=== PATIENT | male | born 1945 | race Caucasian/White ===

== ENCOUNTER 2021-03-25 09:54 | Inpatient (IN) | payer MEDICARE ==
[2021-03-24 12:57] LABS: BASOPHILS % (AUTO) 1 % (0-1); EOSINOPHILS % (AUTO) 2 % (1-7); LYMPHOCYTES % (AUTO) 19 % (22-44); MEAN CORPUSCULAR HEMOGLOBIN 32.7 pg (27.5-34.5); MEAN CORPUSCULAR HGB CONC 33.5 g/dL (33.2-36.2); MEAN PLATELET VOLUME 7.9 fL (7.4-10.4); MONOCYTES % (AUTO) 10 % (2-9); NEUTROPHILS % (AUTO) 68 % (42-75); PLATELET COUNT 288 x10^3/uL (130-400); RED BLOOD COUNT 4.05 x10^6/uL (4.38-5.82); RED CELL DISTRIBUTION WIDTH 13.7 % (9.4-14.8)
[2021-03-24 13:00] LABS: MICROSCOPIC NOT IND
[2021-03-24 13:03] LABS: ALANINE AMINOTRANSFERASE 31 U/L (12-78); ALBUMIN 3.2 g/dL (3.4-5.0); CALCIUM 9.2 mg/dL (8.5-10.1); CREATININE 0.62 mg/dL (0.7-1.3)
[2021-03-24 13:06] LABS: INTERNATIONAL NORMALIZED RATIO 0.93 (0.93-1.1)
[2021-03-24 13:07] LABS: ALKALINE PHOSPHATASE 77 U/L (45-117); BILIRUBIN,TOTAL 0.7 mg/dL (0.2-1.0); TOTAL PROTEIN 6.6 g/dL (6.4-8.2)
[2021-03-24 13:41] LABS: CHLORIDE 108 mmol/L (98-107)
[2021-03-24 13:53] LABS: ANION GAP 5 mmol/L (5-15)
[~2021-03-25] VITALS: Ht 185.4 cm; Wt 96.0 kg
[~2021-03-25 09:54] MED LIST: ACETAMINOPHEN 325 MG TABLET PO PRN; BUPIVACAINE/PF 0.5% ONE; CEFAZOLIN 1,000 MG ONE; DEXT10TA7 PO; EPHEDRINE 50 MG/ML, 1ML IVPush PRN; EPINEPHRINE 1 MG/ML, 1ML ONE; GENTAMICIN 80 MG/2 ML ONE; HYDROmorphone 1 MG/ML, 1ML INJ IVPush PRN; LABETALOL 5MG/ML, 20ML IV PRN; LOSA100T14 PO; MELO10CA3 PO; METHOCARBAMOL 1,000 MG in DEXTROSE 5% 100 ML IV PRN; ONDANSETRON 2MG/ML, 2ML IVPush PRN; OXYcodone 5 MG/5 ML ORAL.SOL UDC PO PRN; PROMETHAZINE 25 MG/ML, 1ML IVPush PRN; ROSU10TA26 PO; hydrALAzine 20 MG/ML, 1ML IV PRN
[2021-03-25] MEDS ORDERED: CHLORHEXIDINE 15 ML UDC ONE (10:11)
[2021-03-25] MEDS ORDERED: FOLI0.8T5 PO (10:20)
[2021-03-25] MEDS ORDERED: GINK60CA2 PO (10:20)
[2021-03-25] MEDS ORDERED: CHOL10003 PO (10:20)
[2021-03-25] MEDS ORDERED: DOCU100T3 PO (10:20)
[2021-03-25] MEDS ORDERED: VALE500C PO (10:20)
[2021-03-25] MEDS ORDERED: CITA20TA6 PO (10:20)
[2021-03-25] MEDS ORDERED: ASPI81TA45 PO (10:20)
[2021-03-25] MEDS ORDERED: LACTATED RINGERS 1,000 ML IV SCH (11:00)
[2021-03-25] MEDS ORDERED: CHLORHEXIDINE 15 ML UDC PO ONE (11:00)
[2021-03-25] MEDS ORDERED: BUPIVACAINE LIPOSOME/PF 10ML INFIL ONE (11:04)
[2021-03-25] MEDS ORDERED: FENTANYL PF 250 MCG/5ML ONE (11:14)
[2021-03-25] MEDS ORDERED: VANCOMYCIN 1,000 MG ONE (11:19)
[2021-03-25] MEDS ORDERED: BUPIVACAINE 0.25% ONE (11:19)
[2021-03-25] MEDS ORDERED: ONDANSETRON 2MG/ML, 2ML ONE (11:57)
[2021-03-25] MEDS ORDERED: EPHEDRINE 50 MG/ML, 1ML ONE (11:57)
[2021-03-25] MEDS ORDERED: CEFAZOLIN 1,000 MG ONE (11:57)
[2021-03-25] MEDS ORDERED: LIDOCAINE-MPF 2% ,5ML ONE (11:57)
[2021-03-25] MEDS ORDERED: SUCCINYLCHOLINE 20 MG/ML, 10ML ONE (11:57)
[2021-03-25] MEDS ORDERED: PROPOFOL 10 MG/ML, 20ML ONE ×2 (11:57→13:44)
[2021-03-25] MEDS ORDERED: DEXAMETHASONE 4 MG/ML, 1ML ONE (11:57)
[2021-03-25] MEDS ORDERED: FENTANYL PF 100 MCG/2ML ONE ×2 (12:17→15:14)
[2021-03-25] MEDS ORDERED: PROPOFOL 100 ML ONE (12:25)
[2021-03-25] MEDS ORDERED: HYDROmorphone 1 MG/ML, 1ML INJ ONE (13:35)
[2021-03-25] MEDS: FENTANYL PF 100 MCG/2ML IV PRN ×2 (15:15→15:27)
[2021-03-25] MEDS ORDERED: HYDROmorphone 2 MG/ML, 1ML IVPush PRN (16:30)
[2021-03-25] MEDS ORDERED: METHOCARBAMOL 1,000 MG in DEXTROSE 5% 100 ML IV ONE ×2 (16:30→20:00)
[2021-03-25] MEDS ORDERED: MAGNESIUM HYDROXIDE 8%, 30ML UDC PO PRN (16:30)
[2021-03-25] MEDS ORDERED: BISACODYL 10 MG SUPP PR PRN (16:30)
[2021-03-25] MEDS ORDERED: LABETALOL 5MG/ML, 20ML IV PRN (16:30)
[2021-03-25] MEDS ORDERED: DIPHENHYDRAMINE 25 MG CAPSULE PO PRN (16:30)
[2021-03-25] MEDS ORDERED: PROMETHAZINE 25 MG/ML, 1ML IM PRN (16:30)
[2021-03-25] MEDS ORDERED: OXYcodone IR 5MG TABLET PO PRN (16:30)
[2021-03-25] MEDS: HYDROcodone/APAP 10/325 MG TABLET PO PRN (18:52)
[2021-03-25] MEDS ORDERED: TAMSULOSIN 0.4 MG CAP.ER.24H PO ONE (19:30)
[2021-03-25] MEDS: BETHANECHOL 10 MG TABLET PO SCH (20:00)
[2021-03-25] MEDS: ATORVASTATIN 40 MG TABLET PO SCH (20:00)
[2021-03-25] MEDS: D5%-0.9% NACL+KCL 20MEQ 1,000 ML IV SCH (20:00)
[2021-03-25 20:09] VITALS: BP 121/69
[2021-03-25] MEDS: CEFAZOLIN PMX 1GM/50ML 50 ML IVPB SCH (20:34)
[2021-03-26 00:21] VITALS: BP 125/67
[2021-03-26 04:34] VITALS: BP 149/67
[2021-03-26] MEDS: CEFAZOLIN PMX 1GM/50ML 50 ML IVPB SCH ×2 (05:23→11:43)
[2021-03-26] MEDS: HYDROcodone/APAP 10/325 MG TABLET PO PRN ×3 (05:26→21:27)
[2021-03-26] MEDS: D5%-0.9% NACL+KCL 20MEQ 1,000 ML IV SCH ×2 (06:00→16:00)
[2021-03-26] MEDS: METHOCARBAMOL 750 MG in DEXTROSE 5% 100 ML IV SCH ×3 (06:08→21:27)
[2021-03-26 06:53] VITALS: BP 116/57
[2021-03-26] MEDS: BETHANECHOL 10 MG TABLET PO SCH ×3 (08:59→21:27)
[2021-03-26] MEDS: SENNA/DOCUSATE TABLET PO SCH (08:59)
[2021-03-26] MEDS: TAMSULOSIN 0.4 MG CAP.ER.24H PO SCH (08:59)
[2021-03-26] MEDS: ADDERALL 10 MG PO SCH (09:00)
[2021-03-26] MEDS: CITALOPRAM 20 MG TABLET PO SCH (09:00)
[2021-03-26] MEDS: LOSARTAN 50MG TABLET PO SCH (09:00)
[2021-03-26] MEDS: ONDANSETRON 2MG/ML, 2ML IV PRN ×2 (09:04→11:41)
[2021-03-26 12:38] VITALS: BP 141/66
[2021-03-26 21:04] VITALS: BP 155/71
[2021-03-26] MEDS: ATORVASTATIN 40 MG TABLET PO SCH (21:27)
[2021-03-27 00:48] VITALS: BP 103/61
[2021-03-27] MEDS: D5%-0.9% NACL+KCL 20MEQ 1,000 ML IV SCH ×2 (02:00→12:00)
[2021-03-27] MEDS: METHOCARBAMOL 750 MG in DEXTROSE 5% 100 ML IV SCH ×2 (05:59→13:35)
[2021-03-27] MEDS: ADDERALL 10 MG PO SCH (07:22)
[2021-03-27 08:30] VITALS: BP 158/72
[2021-03-27] MEDS: LOSARTAN 50MG TABLET PO SCH (08:44)
[2021-03-27] MEDS: BETHANECHOL 10 MG TABLET PO SCH ×2 (08:44→16:21)
[2021-03-27] MEDS: TAMSULOSIN 0.4 MG CAP.ER.24H PO SCH (08:45)
[2021-03-27] MEDS: HYDROcodone/APAP 10/325 MG TABLET PO PRN ×2 (08:45→13:42)
[2021-03-27] MEDS: SENNA/DOCUSATE TABLET PO SCH (08:46)
[2021-03-27] MEDS: CITALOPRAM 20 MG TABLET PO SCH (08:46)
[2021-03-27] MEDS ORDERED: DOXY100T PO (08:55)
[2021-03-27] MEDS ORDERED: HYDR1TAB53 PO (08:55)
[2021-03-27] MEDS ORDERED: METH-640 PO (08:55)
[2021-03-27 13:21] VITALS: BP 138/65
[2021-03-27 16:59] VITALS: BP 113/63
[2021-03-28] MEDS ORDERED: METHOCARBAMOL 750 MG TABLET PO SCH (00:30)
== END 2021-03-27 17:39 | disposition home health service (06) | DRG 517 ==
LOC: OUT 09:54 → 4NE 15:42 → OUT 15:46 → 4NE 15:46
PROVIDERS: ADMIT Neurological Surgery; ATTEND Neurological Surgery
PROC: 01NR0ZZ Release Sacral Nerve, Open Approach (ICD-10-PCS; 2021-03-25)
PROC: 4A11X4G Monitoring of Peripheral Nervous Electrical Activity, Intraoperative, External Approach (ICD-10-PCS; 2021-03-25)
PROC: 4A1034G Monitoring of Central Nervous Electrical Activity, Intraoperative, Percutaneous Approach (ICD-10-PCS; 2021-03-25)
PROC: 00HU03Z Insertion of Infusion Device into Spinal Canal, Open Approach (ICD-10-PCS; 2021-03-25)
PROC: 3E0R3BZ Introduction of Anesthetic Agent into Spinal Canal, Percutaneous Approach (ICD-10-PCS; 2021-03-25)
PROC: 01NB0ZZ Release Lumbar Nerve, Open Approach (ICD-10-PCS; principal; 2021-03-25 13:00)
DX: M48.062 Spinal stenosis, lumbar region with neurogenic claudication (principal); M51.36 Other intervertebral disc degeneration, lumbar region; M47.896 Other spondylosis, lumbar region; M48.07 Spinal stenosis, lumbosacral region; Z88.2 Allergy status to sulfonamides; M54.30 Sciatica, unspecified side
CPT/HCPCS: 36415; 71046; 72100; 80053; 81003; 85025; 85610; 85730; 93005; 95938; 95941; G0378; J0171; J0690; J1100; J1170; J2405; J2550; J2704; J3010; J3370; U0005; J0330; J1580; J2800; J7120; U0003

== ENCOUNTER 2021-06-01 03:39 | Emergency (ER) | payer MEDICARE ==
[~2021-06-01] VITALS: Ht 175.3 cm; Wt 70.5 kg
[~2021-06-01 03:39] MED LIST changes: -ACETAMINOPHEN 325 MG TABLET PO PRN; +ASPI81TA45 PO; -BUPIVACAINE/PF 0.5% ONE; -CEFAZOLIN 1,000 MG ONE; +CHOL10003 PO; +CITA20TA6 PO; +DOCU100T3 PO; +DOXY100T PO; -EPHEDRINE 50 MG/ML, 1ML IVPush PRN; -EPINEPHRINE 1 MG/ML, 1ML ONE; +FOLI0.8T5 PO; -GENTAMICIN 80 MG/2 ML ONE; +GINK60CA2 PO; +HYDR1TAB53 PO; -HYDROmorphone 1 MG/ML, 1ML INJ IVPush PRN; -LABETALOL 5MG/ML, 20ML IV PRN; +METH-640 PO; -METHOCARBAMOL 1,000 MG in DEXTROSE 5% 100 ML IV PRN; -ONDANSETRON 2MG/ML, 2ML IVPush PRN; -OXYcodone 5 MG/5 ML ORAL.SOL UDC PO PRN; -PROMETHAZINE 25 MG/ML, 1ML IVPush PRN; +VALE500C PO; -hydrALAzine 20 MG/ML, 1ML IV PRN
--- NOTE | 2021-06-01 05:32 | NUR ---
PT RESTING ON STRETCHER IN NO ACUTE DISTRESS. RESULTS OF IMAGING PENDING.
[2021-06-01 05:45] VITALS: BP 152/65
== END 2021-06-01 06:38 | disposition home or self-care (01) ==
LOC: ED 06:18
DX: S16.1XXA Strain of muscle, fascia and tendon at neck level, initial encounter (principal); M25.511 Pain in right shoulder; Z87.891 Personal history of nicotine dependence; W01.0XXA Fall on same level from slipping, tripping and stumbling without subsequent striking against object, initial encounter; Y93.89 Activity, other specified; Y92.89 Other specified places as the place of occurrence of the external cause; Y99.8 Other external cause status
CPT/HCPCS: 72125; 99284